=== PATIENT | female | born 1960 | race Caucasian/White ===

== ENCOUNTER → 2017-01-30 | Outpatient (CLI) | payer OTHER ==
--- NOTE | 2017-01-30 17:04 | KCIC ---
MR LUMBAR SPINE HISTORY: Left lower extremity radiculopathy and low back pain Technique: Sagittal T2, sagittal STIR, and sagittal T1-weighted images were obtained. Additional axial T1 and T2 weighted imaging was also performed. FINDINGS: Alignment and curvature are within normal limits. There is no compression fracture or deformity. Reactive endplate edema is noted L4-L5. Bone marrow signal is otherwise within normal limits. The conus terminates normally at the level of L1. Visualized intra-abdominal contents are within normal limits. L5-S1 there is a small annular fissure tear but no spinal stenosis. At L4-L5 there is moderate degenerative disc height loss with reactive endplate edema. The disc height loss results in mild right foraminal stenosis. At L3-L4 there is no spinal stenosis. At L2-L3 there is no spinal stenosis. IMPRESSION: There is degenerative disc disease at L4-L5 with reactive endplate edema. There is no high-grade central spinal or neural foraminal stenosis. Mild right foraminal stenosis is noted at L4-L5. Electronically signed by: Thomas Brennan MD (01/30/2017 5:00 PM)
== END | disposition home or self-care (01) ==
LOC: KCIC MRI 15:43
PROVIDERS: ATTEND Physician Assistant
DX: M51.36 Other intervertebral disc degeneration, lumbar region (principal); M48.06 Spinal stenosis, lumbar region
CPT/HCPCS: 72148